=== PATIENT | male | born 1970 | race Caucasian/White ===

== ENCOUNTER 2021-02-23 10:06 | Day surgery (SDC) | payer OTHER, SELFPAY ==
[~2021-02-23] VITALS: Ht 185.4 cm; Wt 90.7 kg
[2021-02-23] MEDS ORDERED: BUPIVACAINE-MPF 0.25% 30 ML VIAL INJ ONE (10:50)
[2021-02-23] MEDS ORDERED: LIDOCAINE 1% 500 MG/50 ML VIAL ONE (10:50)
[2021-02-23] MEDS ORDERED: fentaNYL citrate 0.05 MG/ML VIAL IVP PRN (11:50)
[2021-02-23] MEDS ORDERED: ONDANSETRON 4 MG/2 ML VIAL IVP PRN (11:50)
[2021-02-23] MEDS ORDERED: LACTATED RINGERS 1,000 ML IV SCH (11:50)
[2021-02-23] MEDS ORDERED: MEPERIDINE 25 MG/ML SYR IVP PRN (11:50)
[2021-02-23] MEDS ORDERED: HYDROcodone/APAP 5/325 MG 1 TAB TAB PO PRN (11:50)
[2021-02-23] MEDS ORDERED: GLYCOPYRROLATE 0.2 MG/ML VIAL ONE (12:09)
[2021-02-23] MEDS ORDERED: KETOROLAC 30 MG/ML VIAL ONE (12:09)
[2021-02-23] MEDS ORDERED: DEXAMETHASONE 4 MG/ML VIAL ONE (12:09)
[2021-02-23] MEDS ORDERED: ONDANSETRON 4 MG/2 ML VIAL ONE (12:09)
[2021-02-23] MEDS ORDERED: NEOSTIGMINE 1:1000 10 MG/10 ML VIAL ONE (12:09)
[2021-02-23] MEDS ORDERED: fentaNYL citrate 0.05 MG/ML VIAL ONE (12:09)
[2021-02-23] MEDS ORDERED: ePHEDrine 50 MG/ML VIAL ONE (12:09)
[2021-02-23] MEDS ORDERED: PROPOFOL 200 MG/20 ML VIAL IV ONE (12:09)
[2021-02-23] MEDS ORDERED: ROCURONIUM 50 MG/5 ML VIAL IV ONE (12:09)
[2021-02-23] MEDS ORDERED: LIDOCAINE 2% 100 MG/5 ML SYR IVP ONE (12:09)
[2021-02-23] MEDS ORDERED: MEPERIDINE 25 MG/ML SYR ONE (12:09)
[2021-02-23] MEDS ORDERED: SUCCINYLCHOLINE CHLORIDE 200 MG/10 ML VIAL IVP ONE (12:09)
[2021-02-23] MEDS ORDERED: SEVOFLURANE 250 ML BTL INH ONE (12:09)
== END 2021-02-23 14:34 | disposition home or self-care (01) ==
LOC: MDS 10:06 → MMU 10:07 → MDS 14:34
PROVIDERS: ATTEND Surgery
DX: K64.8 Other hemorrhoids (principal); K64.4 Residual hemorrhoidal skin tags; F17.210 Nicotine dependence, cigarettes, uncomplicated
CPT/HCPCS: 46250; 71045; 87426; 93005; J0330; J1100; J1885; J2001; J2175; J2405; J2704; J2710; J3010; J3490; J7120; 88304